=== PATIENT | male | born 1955 | race African-American/Black ===

== ENCOUNTER → 2022-01-16 | Day surgery (SDC) | payer OTHER, MEDICAID ==
[~2022-01-16] VITALS: Ht 172.7 cm; Wt 89.8 kg
[~2022-01-16] MED LIST: AMLO5TAB88 PO; ASPI-1497 PO; ATOR20TA65 PO; BENA1TAB18 PO; BUPIVACAINE HCL/PF 0.5% (5MG/ML) 10ML ONE; CHOL2000 PO; DEXAMETHASONE 4MG/ML 1ML VIAL ONE; FENTANYL CITRATE/PF 50MCG/ML 2ML VIAL IV PRN; FENTANYL CITRATE/PF 50MCG/ML 2ML VIAL ONE; FISH1CAP63 PO; GLYCOPYRROLATE 0.2 MG/ML 2ML VIAL ONE; LACTATED RINGERS 1,000 ML IV SCH; MIDAZOLAM HCL 2 MG/2 ML VIAL ONE; ONDANSETRON HCL 4MG/2ML INJ IV NR; PROPOFOL 200MG/20ML VIAL IV ONE; SKIN ADHESIVE 0.7 GM EA TOP ONE
== END | disposition home or self-care (01) ==
LOC: OR 06:25
PROVIDERS: ATTEND Surgery
DX: K40.90 Unilateral inguinal hernia, without obstruction or gangrene, not specified as recurrent (principal); I10 Essential (primary) hypertension; E78.00 Pure hypercholesterolemia, unspecified; Z79.82 Long term (current) use of aspirin; Z79.899 Other long term (current) drug therapy; Z98.890 Other specified postprocedural states; Z20.822 Contact with and (suspected) exposure to COVID-19
CPT/HCPCS: 49505; 87426; C1781; C9803; J1100; J2250; J2704; J3010; J3490